=== PATIENT | male | born 1985 | race Caucasian/White ===

== ENCOUNTER 2017-11-27 22:40 | Inpatient (IN) | payer MEDICARE ==
[2017-11-27 22:50] VITALS: BMI 23.4
--- NOTE | 2017-11-27 22:59 | PDOC ---
Attending Attestation - Resident Resident Name: Patrica Jacobsen - ED Attending Attestation I have performed the following: I have examined & evaluated the patient, The case was reviewed & discussed with the resident, I agree w/resident's findings & plan, Exceptions are as noted - HPI HPI: 32 yo M no significant PMH presents s/p fall at work. He fell approximately 2 stories. He continued to work afterwards, but had diffuse body pains afterwards. He is answering questions on interview, but confused at times. Incident occurred this afternoon. - Physicial Exam PE: GENERAL: Awake, alert. Confused at times, but in no acute distress. Restless in the stretcher. HEAD: +Abrasions to face, swelling to R periorbital area with laceration to R superior orbital rim, no active bleeding. EYES: PERRLA, EOMI, sclera anicteric, conjunctiva clear ENT: Auricles normal inspection, hearing grossly normal, nares patent, oropharynx clear without exudates. Moist mucosa NECK: Normal ROM, supple, no lymphadenopathy, JVD, or masses LUNGS: Breath sounds equal, clear to auscultation bilaterally. No wheezes, and no crackles HEART: Regular rate and rhythm, normal S1 and S2, no murmurs, rubs or gallops ABDOMEN: Soft, nontender, normoactive bowel sounds. No guarding, no rebound. No masses MUSCULOSKELETAL: +Tenderness to R femur, L carpio. +Abrasions to extremities. Normal range of motion, no edema. No clubbing or cyanosis. NEUROLOGICAL: Cranial nerves II through XII grossly intact. Normal speech. Confused. Motor and sensation intact. SKIN: Warm, Dry, normal turgor. - Medical Decision Making 11/27/17 23:14 Pt is s/p significant fall with confusion, facial trauma. C-collar placed. Need to f/o ICH. Will obtain CTH, facial bones, c-spine. Will obtain XR chest, pelvis , R femur, L tib/fib.
[2017-11-27] MEDS ORDERED: SODIUM CHLORIDE 0.9% 500 ML INFUS.BAG IV ONE (23:05)
[2017-11-27] MEDS ORDERED: ACETAMINOPHEN 1000 MG/100 ML VIAL (NON FORMULARY) IVPB ONE (23:06)
[2017-11-27] MEDS ORDERED: ACETAMINOPHEN INJECTION 100 ML IVPB ONE ×2 (23:14→23:18)
[2017-11-27 23:19] LABS: BASO % 0.5 % (0-2.0); EOS % 10.8 % (0-4.5); HEMATOCRIT 41.2 % (35.4-49); LYMPH % 23.2 % (8-40); MCH 30.6 pg (25.7-33.7); MCHC 34.1 g/dl (32.0-35.9); MEAN CELL VOLUME 89.9 fl (80-96); MEAN PLT VOLUME 9.6 fl (7.5-11.1); MONO % 6.2 % (3.8-10.2); NEUT % 59.3 % (42.8-82.8); PLATELET COUNT 188 K/MM3 (134-434); RBC 4.58 M/mm3 (4.00-5.60); RDW 12.5 % (11.9-15.9); WHITE BLOOD COUNT 11.2 K/mm3 (4.0-10.0)
--- NOTE | 2017-11-27 23:31 | PDOC ---
History of Present Illness - General Chief Complaint: Injury Stated Complaint: ACCIDENT AT WORK Time Seen by Provider: 11/27/17 22:59 History Source: Patient, Family Exam Limitations: No Limitations - History of Present Illness Initial Comments: 11/27/17 23:07 This is a 32 YOM with unremarkable PMH who p/w fall from second-floor scaffolding while at work at about 2 pm today. He cannot recall how he landed but he notes having hit his right eyebrow, right knee and femur, and left carpio, and he has skin scrapes on his right forearm as well. He denies LOC and states that he continued working all afternoon. His family made him come in to the ED tonight because he was acting confused. The patient himself notes pain to his head and R>L leg. He states that he feels a bit lightheaded but otherwise denies complaints. He has not taken medications for the pain. Past History - Past Medical History Allergies/Adverse Reactions: Allergies Allergy/AdvReac Type Severity Reaction Status Date / Time No Known Allergies Allergy Verified 11/27/17 22:50 COPD: No - Suicide/Smoking/Psychosocial Hx Smoking History: Never smoked Review of Systems - Review of Systems Able to Perform ROS?: Yes Constitutional: Yes: Other (confusion). No: Chills, Fever, Unexplained wgt Loss HEENTM: No: Nose Congestion, Throat Pain Respiratory: No: Cough, Shortness of Breath Cardiac (ROS): Yes: Lightheadedness. No: Chest Pain, Palpitations ABD/GI: No: Constipated, Diarrhea, Nausea, Vomiting : No: Burning, Dysuria Musculoskeletal: Yes: Muscle Pain. No: Back Pain, Neck Pain Integumentary: Yes: Bruising, Lesions. No: Rash Neurological: Yes: Headache. No: Numbness, Tingling, Weakness Endocrine: No: Unexplained Weight Gain, Unexplained Weight Loss *Physical Exam - Vital Signs Last Vital Signs Temp Pulse Resp BP Pulse Ox 99.2 F 59 L 18 143/78 99 11/27/17 22:44 11/27/17 22:44 11/27/17 22:44 11/27/17 22:44 11/27/17 22:44 ED Treatment Course - LABORATORY CBC & Chemistry Diagram: 11/27/17 23:10 11/27/17 23:10 - RADIOLOGY Radiology Studies Ordered: Category Date Time Status CERVICAL SPINE CT W/O CONTR [CT] Stat CT Scan 11/27/17 23:[address] W/O CONTRAST [CT] Stat CT Scan 11/27/17 23:[address] WITHOUT CONTRAST [CT] Stat CT Scan 11/27/17 23:05 Ordered CHEST PA & LAT [RAD] Stat Radiology 11/27/17 23:05 Ordered FEMUR-RIGHT [RAD] Stat Radiology 11/27/17 23:05 Ordered KNEE 3 POS-RIGHT [RAD] Stat Radiology 11/27/17 23:05 Ordered LEG TIB/FIB-LEFT [RAD] Stat Radiology 11/27/17 23:05 Ordered PELVIS [RAD] Stat Radiology 11/27/17 23:05 Ordered *DC/Admit/Observation/Transfer Diagnosis at time of Disposition: Fall Qualifiers: Encounter type: initial encounter Qualified Code(s): W19.XXXA - Unspecified fall, initial encounter Rhabdomyolysis Qualifiers: Rhabdomyolysis type: traumatic Encounter type: initial encounter Qualified Code (s): T79.6XXA - Traumatic ischemia of muscle, initial encounter Concussion Qualifiers: Encounter type: initial encounter Loss of consciousness presence/duration: without LOC Qualified Code(s): S06.0X0A - Concussion without loss of consciousness, initial encounter - Discharge Dispostion Condition at time of disposition: Guarded Decision to Admit order: Yes - Referrals - Patient Instructions - Post Discharge Activity
[2017-11-27 23:32] LABS: INR 1.18 (0.83-1.09); PROTHROMBIN TIME (PATIENT) 13.9 SEC (9.7-13.0)
[2017-11-28 00:18] LABS: ALBUMIN 4.2 g/dl (3.4-5.0); ALK PHOS 89 U/L (45-117); ANION GAP 10 MMOL/L (8-16); BILIRUBIN,TOTAL 0.6 mg/dL (0.2-1); BLOOD UREA NITROGEN 13 mg/dL (7-18); CALCIUM 8.7 mg/dL (8.5-10.1); CHLORIDE 107 mmol/L (98-107); CO2 24 mmol/L (21-32); CREATININE 0.8 mg/dL (0.55-1.3); GLUCOSE,RANDOM 90 mg/dL (74-106); POTASSIUM 3.5 mmol/L (3.5-5.1); SGOT/AST 48 U/L (15-37); SGPT/ALT 37 U/L (13-61); SODIUM 141 mmol/L (136-145); TOT PROT 7.2 g/dl (6.4-8.2)
[2017-11-28] MEDS ORDERED: SODIUM CHLORIDE 0.9% 500 ML INFUS.BAG IV ONE (01:46)
[2017-11-28] MEDS ORDERED: DIPHTH,PERTUSS(ACELL),TET 0.5 ML DISP.SYRIN IM ONE (01:55)
--- NOTE | 2017-11-28 02:12 | PN ---
Teaching Attending Note Name of Resident: Portillo Bangura ATTENDING PHYSICIAN STATEMENT I saw and evaluated the patient. I reviewed the resident's note and discussed the case with the resident. I agree with the resident's findings and plan as documented. SUBJECTIVE: Patient is a 32 year old man who presents after a fall from second-floor scaffolding while at work at about 2 pm today. He cannot recall how he landed but he notes having hit his right eyebrow, right knee and femur, and left carpio, and he has skin scrapes on his right forearm as well. He denies LOC and states that he continued working all afternoon. His family made him come in to the ER tonight because he was acting confused. The patient himself notes pain to his head and R>L leg. He states that he feels a bit lightheaded but otherwise denies complaints. He has not taken medications for the pain. OBJECTIVE: Alert Vital Signs Period Temp Pulse Resp BP Sys/Joy Pulse Ox Last 24 Hr 99.2 F 59 18 143/78 99 HEENT: No Jaundice, eye redness or discharge, PERRLA, EOMI. Facial abrasions and periorbital laceration and swelling. External ears are normal and hearing is grossly intact. No nasal discharge. Neck: Supple, nontender. No palpable adenopathy or thyromegaly. No JVD Chest: Good effort. Clear to auscultation and percussion. Heart: Bradycardia. No S3, rub or murmur Abdomen: Not distended, soft, nontender and no HSM. No rebound or guarding. Normoactive bowel sounds. Ext: Peripheral pulses intact. No leg edema. Skin: Warm and dry. No petechiae, rash or ecchymosis. Neuro: Alert. Oriented to person. Confused. CN 2-12 grossly intact. Sensation grossly intact in all four extremities and DTR are symmetric. Gait cannot be tested for safety reasons. Abnormal Lab Results 11/27/17 11/27/17 11/27/17 23:10 23:10 23:10 WBC 11.2 H Eosinophils % 10.8 H PT with INR 13.90 H INR 1.18 H AST 48 H Creatine Kinase 1485 H CK-MB (CK-2) 13.1 H ASSESSMENT AND PLAN: 1. Fall with Rhabdomyolysis and ? Cerebral concussion - Imaging studies do not reveal any fracture or intracranial pathology. Will do neurochecks q 2 hours, seizure and fall precautions, give IV NS for rhabdomyolysis and trend CPK and consult neurology. Get brain MRI. Bradycardia is concerning. Monitor on telemetry, get ECHO and consult cardiology. Apply antibacterial cream to skin abrasions. 2. DVT prophylaxis - Lovenox 40 mg SQ q 24 hours. 3. Advance directives - Full code
[2017-11-28] MEDS ORDERED: MORPHINE SULFATE 2 MG/ML VIAL IVPUSH PRN (02:42)
[2017-11-28] MEDS ORDERED: SODIUM CHLORIDE 1,000 ML IV SCH ×2 (02:45→09:50)
--- NOTE | 2017-11-28 02:55 | HP ---
CHIEF COMPLAINT: AMS, pain 2/2 mechanical fall PCP: none HISTORY OF PRESENT ILLNESS: Dr Portillo Bartholomew senior resident aided in Syriac translation. Pt is a 32 y/o gentleman with no significant past medical history who presented yesterday evening to [facility] experiencing a mechanical fall at approximately 2 pm yesterday afternoon in [place]. 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 Pt states he fell and injured his right eyebrow, right leg, and left carpio. He cannot recall if he lost consciousness but states he continued to work. Endorses he did hit his head during the fall on some surrounding tables and a collection of construction wires. When pt got home, family noticed he was behaving oddly and was confused. Pt endorses pain in his head as well as his R leg. Family then called 911 and pt was brought to our ED. Denies nausea, vomiting, dizziness before fall, chest pain, palpitations, or headache. ER course was notable for: (1) CK 1485 (2) Head CT negative (3) WBC 11.2 Recent Travel: Denies PAST MEDICAL HISTORY: None PAST SURGICAL HISTORY: none Social History: Smokin-3 cigarettes/day Alcohol:denies Drugs: denies Family History: Allergies No Known Allergies Allergy (Verified 11/27/17 22:50) HOME MEDICATIONS: REVIEW OF SYSTEMS CONSTITUTIONAL: Absent: fever, chills, diaphoresis, generalized weakness, malaise, loss of appetite, weight change HEENT: Absent: rhinorrhea, nasal congestion, throat pain, throat swelling, difficulty swallowing, mouth swelling, ear pain, eye pain, visual changes CARDIOVASCULAR: Absent: chest pain, syncope, palpitations, irregular heart rate, lightheadedness , peripheral edema RESPIRATORY: Absent: cough, shortness of breath, dyspnea with exertion, orthopnea, wheezing, stridor, hemoptysis GASTROINTESTINAL: Absent: abdominal pain, abdominal distension, nausea, vomiting, diarrhea, constipation, melena, hematochezia GENITOURINARY: Absent: dysuria, frequency, urgency, hesitancy, hematuria, flank pain, genital pain MUSCULOSKELETAL: PRESENT: myalgia, back pain, neck pain SKIN: PRESENT: multiple abrasions s/p mechanical fall HEMATOLOGIC/IMMUNOLOGIC: Absent: easy bleeding, easy bruising, lymphadenopathy, frequent infections ENDOCRINE: Absent: unexplained weight gain, unexplained weight loss, heat intolerance, cold intolerance NEUROLOGIC: Absent: headache, focal weakness or paresthesias, dizziness, unsteady gait, seizure, mental status changes, bladder or bowel incontinence PSYCHIATRIC: Absent: anxiety, depression, suicidal or homicidal ideation, hallucinations. PHYSICAL EXAMINATION Vital Signs - 24 hr 11/27/17 22:44 Temperature 99.2 F Pulse Rate 59 L Respiratory 18 Rate Blood Pressure 143/78 O2 Sat by Pulse 99 Oximetry (%) GENERAL: AAOx3, NAD HEAD: Laceration above R eyebrow. EYES: injected conjunctiva, eomi, perrla EARS, NOSE, THROAT: MMM NECK: C Collar in place. LUNGS:CTA B/L HEART: bradycardia, sinus rythm ABDOMEN: ND, NT, No HSM MUSCULOSKELETAL: FROM throughout. Tender to palpation R hip UPPER EXTREMITIES: No CCE. Multiple abrasions on forearms LOWER EXTREMITIES: Abrasion left carpio. NEUROLOGICAL: CN 2-12 intact PSYCHIATRIC: Cooperative. Good eye contact. Appropriate mood and affect. SKIN: abrasion over R eyebrow, L leg carpio, b/l arms Laboratory Results - last 24 hr 11/27/17 11/27/17 11/27/17 23:10 23:10 23:10 WBC 11.2 H RBC 4.58 Hgb 14.0 Hct 41.2 MCV 89.9 MCH 30.6 MCHC 34.1 RDW 12.5 Plt Count 188 MPV 9.6 Absolute Neuts (auto) 6.6 Neutrophils % 59.3 Lymphocytes % 23.2 Monocytes % 6.2 Eosinophils % 10.8 H Basophils % 0.5 Nucleated RBC % 0 PT with INR 13.90 H INR 1.18 H Sodium 141 Potassium 3.5 Chloride 107 Carbon Dioxide 24 Anion Gap 10 BUN 13 Creatinine 0.8 Creat Clearance w eGFR > 60 Random Glucose 90 Calcium 8.7 Total Bilirubin 0.6 AST 48 H ALT 37 Alkaline Phosphatase 89 Creatine Kinase 1485 H Creatine Kinase Index 0.8 CK-MB (CK-2) 13.1 H Troponin I < 0.02 Total Protein 7.2 Albumin 4.2 Blood Type Antibody Screen 11/27/17 23:10 WBC RBC Hgb Hct MCV MCH MCHC RDW Plt Count MPV Absolute Neuts (auto) Neutrophils % Lymphocytes % Monocytes % Eosinophils % Basophils % Nucleated RBC % PT with INR INR Sodium Potassium Chloride Carbon Dioxide Anion Gap BUN Creatinine Creat Clearance w eGFR Random Glucose Calcium Total Bilirubin AST ALT Alkaline Phosphatase Creatine Kinase Creatine Kinase Index CK-MB (CK-2) Troponin I Total Protein Albumin Blood Type A POSITIVE Antibody Screen Negative ASSESSMENT/PLAN: Pt is a 32 y/o gentleman with no significant past medical history who presented yesterday evening to [facility] after experiencing a mechanical fall at approximately 2 pm yesterday afternoon in [place]. #Rhabdomyolysis 2/2 mechanical fall - CK--> 1485 on admission. -NS@125cc/hr -Trend CK -Neurology consult -Neurochecks q 2 hours -Head CT negative, CT lumbar, thoracic, cervical all negative -Knee, Hip/pelvis, R hand all negative # Bradycardia - Tele obs - Cardiology consult -Claudine's reflex? BP 143/[address] negative for any acute intracranial pathology. No midline shift, hematoma, no mass. FEN No Fluids Monitor Electrolytes Regular diet DVT ppx AC on hold as pt may have internal bleed. Visit type - Emergency Visit Emergency Visit: Yes ED Registration Date: 11/28/17 Care time: The patient presented to the Emergency Department on the above date and was hospitalized for further evaluation of their emergent condition. - New Patient This patient is new to me today: Yes Date on this admission: 11/28/17 - Critical Care Critical Care patient: No
[2017-11-28] MEDS ORDERED: MORPHINE SULFATE 2 MG/ML VIAL ONE (03:50)
[2017-11-28 08:08] LABS: BASO % 0.3 % (0-2.0); EOS % 11.6 % (0-4.5); HEMATOCRIT 39.8 % (35.4-49); HEMOGLOBIN 13.5 GM/dL (11.7-16.9); LYMPH % 25.8 % (8-40); MCH 30.6 pg (25.7-33.7); MCHC 33.9 g/dl (32.0-35.9); MEAN CELL VOLUME 90.4 fl (80-96); MEAN PLT VOLUME 9.8 fl (7.5-11.1); MONO % 6.4 % (3.8-10.2); NEUT % 55.9 % (42.8-82.8); PLATELET COUNT 166 K/MM3 (134-434); RDW 12.9 % (11.9-15.9); WHITE BLOOD COUNT 7.9 K/mm3 (4.0-10.0)
[2017-11-28 08:21] LABS: INR 1.24 (0.83-1.09); PROTHROMBIN TIME (PATIENT) 14.7 SEC (9.7-13.0)
[2017-11-28 08:40] LABS: ALBUMIN 3.4 g/dl (3.4-5.0); ALK PHOS 81 U/L (45-117); ANION GAP 6 MMOL/L (8-16); BILIRUBIN,TOTAL 0.8 mg/dL (0.2-1); BLOOD UREA NITROGEN 9 mg/dL (7-18); CALCIUM 7.7 mg/dL (8.5-10.1); CHLORIDE 110 mmol/L (98-107); CO2 25 mmol/L (21-32); CREATININE 0.6 mg/dL (0.55-1.3); GLUCOSE,RANDOM 89 mg/dL (74-106); PHOSPHOROUS 2.9 mg/dL (2.5-4.9); POTASSIUM 3.5 mmol/L (3.5-5.1); SGOT/AST 39 U/L (15-37); SGPT/ALT 31 U/L (13-61); SODIUM 141 mmol/L (136-145); TOT PROT 6.1 g/dl (6.4-8.2)
--- NOTE | 2017-11-28 09:10 | CON.CARD ---
Consult Consult Specialty:: Cardiology Referred by:: Hospitalist Medicine Reason for Consultation:: Bradycardia - History of Present Illness Chief Complaint: Post mechanical fall History of Present Illness: Patient is a 32 year old man who presents after a fall from second-floor scaffolding after structure gave way while at work at about 2 pm today. He cannot recall how he landed but he notes having hit his right eyebrow with closed head trauma, right knee and femur, and left carpio, and he has skin scrapes on his right forearm as well. He denies LOC and states that he continued working all afternoon. The patient himself notes pain to his head and R>L leg. He states that he feels a bit lightheaded but otherwise denies complaints. He denies chest pain, dyspnea, near or true syncope, palpitations, orthopnea, PND or LE edema, family noticed confusion earlier now sensorium has improved. - History Source History Provided By: Patient Limitations to Obtaining History: Language Barrier - Smoking History Smoking history: Never smoked Home Medications - Allergies Allergies/Adverse Reactions: Allergies Allergy/AdvReac Type Severity Reaction Status Date / Time No Known Allergies Allergy Verified 11/27/17 22:50 - Home Medications Home Medications: Ambulatory Orders NK [No Known Home Medication] 11/28/17 Review of Systems - Review of Systems Cardiovascular: reports: No Symptoms Respiratory: reports: No Symptoms Musculoskeletal: reports: Extremity Pain Neurological: reports: Dizziness Vital Signs: Vital Signs Temperature 97.6 F 11/28/17 08:31 Pulse Rate 44 L 11/28/17 08:31 Respiratory Rate 18 11/28/17 08:31 Blood Pressure 116/72 11/28/17 08:31 O2 Sat by Pulse Oximetry (%) 98 11/28/17 08:31 Constitutional: Yes: No Distress, Calm, Thin Neck: Yes: Supple Respiratory: Yes: Regular, CTA Bilaterally Gastrointestinal: Yes: Normal Bowel Sounds, Soft Cardiovascular: Yes: Bradycardia JVD: No Carotid Bruit: No Heart Sounds: Yes: S1, S2 Edema: No - Other Data Labs, Other Data: CBC, BMP 11/28/17 07:42 11/28/17 07:42 INR, PTT INR 1.24 (0.83-1.09) H 11/28/17 07:42 Troponin, BNP 11/27/17 23:10 Troponin I < 0.02 Troponin, BNP 11/27/17 23:10 Troponin I < 0.02 SB @ [address]-T changes Imaging - Results Chest X-ray: Report Reviewed (NAD) X-ray: Report Reviewed (No fractures or dislocation) Cat Scan: Report Reviewed (No brain bleed) Problem List - Problems (1) Sinus bradycardia Code(s): R00.1 - BRADYCARDIA, UNSPECIFIED (2) Concussion Code(s): S06.0X9A - CONCUSSION W LOSS OF CONSCIOUSNESS OF UNSP DURATION, INIT Qualifiers: Encounter type: initial encounter Loss of consciousness presence/duration: without LOC Qualified Code(s): S06.0X0A - Concussion without loss of consciousness, initial encounter (3) Fall Code(s): W19.XXXA - UNSPECIFIED FALL, INITIAL ENCOUNTER Qualifiers: Encounter type: initial encounter Qualified Code(s): W19.XXXA - Unspecified fall, initial encounter (4) Rhabdomyolysis Code(s): M62.82 - RHABDOMYOLYSIS Qualifiers: Rhabdomyolysis type: traumatic Encounter type: initial encounter Qualified Code(s): T79.6XXA - Traumatic ischemia of muscle, initial encounter Assessment/Plan 1. Asymptomatic sinus bradycardia due to high vagal tone 2. Post mechanical fall and concussion with rhabdomyolysis P:1. F/u echo already ordered, ambulate patient if possible to confirm chronotropic competence with activity 2. No treatment is warranted for asymptomatic bradycardia, IVF monitor CPK trend , neuro checks 3. Thank you for consultative opportunity
--- NOTE | 2017-11-28 10:35 | EKG ---
Test Reason : Blood Pressure : / mmHG Vent. Rate : 043 BPM Atrial Rate : 043 BPM P-R Int : 188 ms QRS Dur : 086 ms QT Int : 438 ms P-R-T Axes : 020 055 034 degrees QTc Int : 370 ms MARKED SINUS BRADYCARDIA ABNORMAL ECG NO PREVIOUS ECGS AVAILABLE Confirmed by JAJA CAO MD ([id number]) on 11/28/2017 10:35:01 AM Referred By: Confirmed By:JAJA CAO MD
--- NOTE | 2017-11-28 16:25 | PN ---
Teaching Attending Note Name of Resident: Radha Baires ATTENDING PHYSICIAN STATEMENT/Brief DC summary I saw and evaluated the patient. I reviewed the resident's note and discussed the case with the resident. I agree with the resident's findings and plan as documented. SUBJECTIVE: Seen and examined with residents; patient sustained a fall and appeared dehydrated and was found to have elevated CK levels which were worrisome for rhabdomyolysis (though they were never 3x >upper limit of normal nor were they > 5000). He was found to have asymptomatic bradycardia incidentally. For this, cardiology was consulted and they attributed it to high vagal tone and didn't recommend any further testing or followup. He has some soreness post fall which he may manage with PRN APAP. He will be instructed to drink 2L H20/day for the next few days and have a repeat BMP in <5 days. Never had any renal or neural involvement. OBJECTIVE: VSS, all labs reviewed Gen: AAOx2, NAD : Making clear, yellow urine GI; Soft, NT ND +BS HEENT: Some abrasions around the R-eye. NC, EOMI, PERRLA CV: RRR no mgr Pulm: CTAB with sym expansion ASSESSMENT AND PLAN: 1) Elevated CK: Not quite rhabdo levels; 2/2 increased work load post fall and dehydration. CK trending down and he is making urine with almost 1L of clear, light urine out. No renal involvement. 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 Per CV due to high vagal tone in this healthy 32 y/o. 4) Eosinophilia: No localizing sx or apparent end organ damage. Check B12, CBC w/ diff, peripheral smear, strongyloides titers as outpatient. FULL CODE 40 minutes spent on this DC including time spent explaining and counseling patient.
--- NOTE | 2017-11-28 16:46 | DS ---
Physical Exam: SUBJECTIVE: Patient seen and examined this morning at bedside. Part of the conversation was translated by the medical student, Gregg Anderson. Patient says he fell from approx 18-20 feet and landed on his right side. Patient says he remembers falling and denies feeling dizzy or "blacking out." He denies any jerking of his arms, legs or neck, denies any loss of bowel or bladder control. After the fall in the early afternoon, he continued working. This morning he says he is doing well. He says he had whole body pain that was worst at midnight but is improving and is less intense. Currently the pain 4/10. He denies any loss of sensation or feelings of weakness. Denies any fevers, chills , chest pain, SOB, nausea, vomiting, diarrhea, constipation. OBJECTIVE: Vital Signs Period Temp Pulse Resp BP Sys/Joy Pulse Ox Last 24 Hr 97.6 F-99.2 F 44-59 15-18 116-143/72-78 98-100 PHYSICAL EXAM GENERAL: A&Ox3, NAD HEAD: Laceration above R eyebrow EYES: PERRL, EOMI ENT: Oropharynx clear without exudates, moist mucous membranes. NECK: Supple LUNGS: Breath sounds equal, clear to auscultation bilaterally, no wheezes HEART: Bradycardic, S1, S2 without murmur ABDOMEN: Soft, nontender, nondistended, + bowel sounds, no guarding EXTREMITIES: 2+ pulses, no edema. NEUROLOGICAL: Cranial nerves II through XII grossly intact. Normal speech. SKIN: Warm, dry LABS Laboratory Results - last 24 hr 11/27/17 11/27/17 11/27/17 23:10 23:10 23:10 WBC 11.2 H RBC 4.58 Hgb 14.0 Hct 41.2 MCV 89.9 MCH 30.6 MCHC 34.1 RDW 12.5 Plt Count 188 MPV 9.6 Absolute Neuts (auto) 6.6 Neutrophils % 59.3 Lymphocytes % 23.2 Monocytes % 6.2 Eosinophils % 10.8 H Basophils % 0.5 Nucleated RBC % 0 PT with INR 13.90 H INR 1.18 H PTT (Actin FS) Sodium 141 Potassium 3.5 Chloride 107 Carbon Dioxide 24 Anion Gap 10 BUN 13 Creatinine 0.8 Creat Clearance w eGFR > 60 Random Glucose 90 Calcium 8.7 Phosphorus Magnesium Total Bilirubin 0.6 AST 48 H ALT 37 Alkaline Phosphatase 89 Creatine Kinase 1485 H Creatine Kinase Index 0.8 CK-MB (CK-2) 13.1 H Troponin I < 0.02 Total Protein 7.2 Albumin 4.2 Blood Type Antibody Screen 11/27/17 11/28/17 11/28/17 23:10 07:42 07:42 WBC 7.9 RBC 4.40 Hgb 13.5 Hct 39.8 MCV 90.4 MCH 30.6 MCHC 33.9 RDW 12.9 Plt Count 166 MPV 9.8 Absolute Neuts (auto) 4.4 Neutrophils % 55.9 Lymphocytes % 25.8 Monocytes % 6.4 Eosinophils % 11.6 H Basophils % 0.3 Nucleated RBC % 0 PT with INR 14.70 H INR 1.24 H PTT (Actin FS) 31.0 Sodium Potassium Chloride Carbon Dioxide Anion Gap BUN Creatinine Creat Clearance w eGFR Random Glucose Calcium Phosphorus Magnesium Total Bilirubin AST ALT Alkaline Phosphatase Creatine Kinase Creatine Kinase Index CK-MB (CK-2) Troponin I Total Protein Albumin Blood Type A POSITIVE Antibody Screen Negative 11/28/17 11/28/17 07:42 12:50 WBC RBC Hgb Hct MCV MCH MCHC RDW Plt Count MPV Absolute Neuts (auto) Neutrophils % Lymphocytes % Monocytes % Eosinophils % Basophils % Nucleated RBC % PT with INR INR PTT (Actin FS) Sodium 141 Potassium 3.5 Chloride 110 H Carbon Dioxide 25 Anion Gap 6 L BUN 9 Creatinine 0.6 Creat Clearance w eGFR > 60 Random Glucose 89 Calcium 7.7 L Phosphorus 2.9 Magnesium 2.0 Total Bilirubin 0.8 AST 39 H ALT 31 Alkaline Phosphatase 81 Creatine Kinase 988 H 816 H Creatine Kinase Index 0.7 0.8 CK-MB (CK-2) 7.8 H 6.6 H Troponin I Total Protein 6.1 L Albumin 3.4 Blood Type Antibody Screen IMAGING: -CXR: No acute chest pathology. Large heart. No comparison studies. -Pelvis XRay: No acute pelvis or hip pathology. -R Femur XRay: 4 views of the right femur have been submitted. There is no sign of fracture subluxation no sign of blastic or lytic changes. There are some scattered radiopaque densities seen by the mid shaft of the femur by the proximal tibia. Correlation recommended. Symptoms persist, further imaging may be of help -R Knee XRay: No acute right knee pathology. -L Tib/Fib XRay: 4 views of the left leg reveal no sign of fracture subluxation no sign of blastic or lytic changes. There is no sign of soft tissue or foreign body. In one view there is evidence of a radiopaque density in the mid leg soft tissues. This is not seen in the other views and most likely is artifactual. Correlation recommended. If symptoms persist, further imaging may be of help -CT C-Spine without Contrast: No evidence of acute fracture, compression deformities, subluxation, prevertebral soft tissue swelling. -CT Facial bones without Contrast: No evidence of acute facial fracture. -CT Head without contrast: No evidence of acute intracranial hemorrhage, edema, midline shift, mass effect, or skull fracture. No CT evidence of acute territorial infarction. -CT Thoracic, Lumbar spine without Contrast: No acute fracture is seen. No evidence of compression deformities, spondylolisthesis, or spondylolysis. Normal alignment of the facet joints, spinous processes. -R Hand XRay: No acute right hand pathology. -EKG: MARKED SINUS BRADYCARDIA, VR 43, QTc 370 HOSPITAL COURSE: Date of Admission:11/28/17 Date of Discharge: 11/28/17 32 y/o M with no significant PMHx presents to [facility] after experiencing a mechanical fall while working. Imaging (noted above) did not reveal any fractures or intracranial pathology. His trauma survery was negative and his pain was controlled with tylenol and morphine. Initial labs revealed a CK of 1485. Patient was hydrated with NS and his CK trended down. His EKG revealed bradycardia (noted above) for which cardiology was consulted and determined no treatment was warranted for asymptomatic bradycardia. Patient continued to make urine without difficulty. Patient was discharged home with strict instructions to follow up with his PCP and repeat his CK level. He was also told to check his B12, Peripheral blood smear and strongyloides. Minutes to complete discharge: 40 Discharge Summary Reason For Visit: FALL RHABDOMYOLYSIS Current Active Problems Concussion (Acute) Fall (Acute) Rhabdomyolysis (Acute) Sinus bradycardia (Acute) Condition: Improved - Instructions Diet, Activity, Other Instructions: You presented to the hospital after falling. Imaging did not reveal any acute pathology. One of your lab values (CK) was found to be elevated. You were given IV hydration and this lab value improved. Please continue to hydrate yourself for this number to continue to improve. You need to repeat your BMP in 3 days to make sure your CK continues to improve. You will also need to have the following labs checked in 1 week: B12, Peripheral blood smear, strongyloides. Please follow up with your primary care physician in one week. Continue all your other medications as prescribed. Please return to the ER if you have any signs or symptoms of chest pain, shortness of breath, uncontrollable fever, chills, nausea, vomiting, numbness, tingling, or weakness in any part of your body, changes in vision, or slurred speech. Please return to the ER if symptoms persist, worsen, or new symptoms arise. Referrals: Davey Meyer MD [Staff Physician] - Disposition: HOME - Home Medications Comprehensive Discharge Medication List: Ambulatory Orders NK [No Known Home Medication] 11/28/17 This patient is new to me today: Yes Date on this admission: 11/29/17 Emergency Visit: Yes ED Registration Date: 11/28/17 Care time: The patient presented to the Emergency Department on the above date and was hospitalized for further evaluation of their emergent condition. Critical Care patient: No - Discharge Referral Referred to [facility] No
[2017-11-28 17:41] VITALS: BP 112/64; PULSE 50; TEMP 99.3
== END 2017-11-28 18:33 | disposition home or self-care (01) | DRG 57 ==
LOC: JER 22:40 → JERBED 11-28 01:37
PROVIDERS: ADMIT Internal Medicine; ATTEND Internal Medicine
DX: S06.0X0A Concussion without loss of consciousness, initial encounter (principal); D72.1 Eosinophilia; T79.6XXA Traumatic ischemia of muscle, initial encounter; R00.1 Bradycardia, unspecified; E86.0 Dehydration; F17.210 Nicotine dependence, cigarettes, uncomplicated; W17.89XA Other fall from one level to another, initial encounter; S01.111A Laceration without foreign body of right eyelid and periocular area, initial encounter; Y93.89 Activity, other specified; Y92.89 Other specified places as the place of occurrence of the external cause; Y99.8 Other external cause status
CPT/HCPCS: 36415; 70450-TC; 70486-TC; 71046-TC-FY; 72125-TC; 72128-TC; 72131-TC; 72170-TC-FY; 73130-TC-RT-FY; 73552-TC-RT-FY; 73562-TC-RT-FY; 73590-TC-LT-FY; 80053; 82550; 82553; 83735; 84100; 84484; 85025; 85610; 85730; 86850; 86900; 86901; 90715; 93005; 93010; 99285-25; J0131; J7030